=== PATIENT | female | born 1980 | race Caucasian/White ===

== ENCOUNTER 2019-04-11 18:36 | Emergency (ER) | payer MEDICAID ==
[~2019-04-11] VITALS: Ht 154.9 cm; Wt 106.6 kg
[2019-04-11 18:45] VITALS: BP 120/74
[2019-04-11] MEDS ORDERED: IPRATROPIUM BROM 0.5 MG/2.5ML INH SOL NEB ONE (20:30)
[2019-04-11] MEDS ORDERED: ALBUTEROL SULF 2.5 MG/0.5ML(0.5%) NEB SOLN NEB ONE (20:30)
== END 2019-04-11 21:19 | disposition home or self-care (01) ==
LOC: ER 18:42
DX: J45.901 Unspecified asthma with (acute) exacerbation (principal)
CPT/HCPCS: 94640; 99283; J7611; J7644